=== PATIENT | male | born 1990 | race Caucasian/White ===

== ENCOUNTER 2020-06-28 15:20 | Emergency (ER) | payer MEDICAID ==
[~2020-06-28] VITALS: Ht 172.7 cm; Wt 77.0 kg
--- NOTE | 2020-06-28 15:38 | NUR ---
PT C/O SINUS CONGESTION WITH COUGH. PT DENIES FEVER, CHILLS, OR CHEST PAIN. PT STATES HE DOESN'T KNOW IF HE HAS HAD CONTACT WITH ANYONE WITH COVID.
[2020-06-28] MEDS ORDERED: ALBUTEROL/IPRATROPIUM 2.5MG/0.5MG, 3 ML ONE (15:48)
[2020-06-28] MEDS ORDERED: DEXAMETHASONE 4 MG TABLET ONE (15:49)
[2020-06-28] MEDS ORDERED: ALBUTEROL/IPRATROPIUM 2.5MG/0.5MG, 3 ML NPPB ONE (16:00)
[2020-06-28] MEDS ORDERED: DEXAMETHASONE 4 MG TABLET PO ONE (16:00)
--- NOTE | 2020-06-28 16:30 | NUR ---
PT STATES HE FELT MILD RELIEF AFTER THE NEBULIZED MEDICATION.
--- NOTE | 2020-06-28 16:43 | NUR ---
PA AT BEDSIDE. PT OXYGEN SATURATION 88 TO 91 PERCENT. PT AWARE HE HAS PNA BUT DOES NOT WANT TO BE ADMITTED. PA DISCUSSED THAT HE SHOULD GET A PULSE OX AND MONITOR IT AT HOME AND TO BE PRESCRIBED MEDS.
[2020-06-28 17:13] VITALS: BP 117/77
--- NOTE | 2020-06-28 17:25 | NUR ---
PT RECV'D DISCHARGE INSTRUCTIONS AND EDUCATION. PT HAD NO FURTER QUESTIONS. PT AMBULATED TO DISHARGE AREA, STEADY GAIT.
== END 2020-06-28 17:29 | disposition home or self-care (01) ==
LOC: ED 16:16
DX: J06.9 Acute upper respiratory infection, unspecified (principal); Z20.828 Contact with and (suspected) exposure to other viral communicable diseases; R06.02 Shortness of breath; H66.92 Otitis media, unspecified, left ear; R50.9 Fever, unspecified; R05 Cough; J45.909 Unspecified asthma, uncomplicated; F17.210 Nicotine dependence, cigarettes, uncomplicated
CPT/HCPCS: 36415; 71045; 87635; 93005; 94640; 99285

== ENCOUNTER 2021-05-11 18:17 | Emergency (ER) | payer MEDICAID ==
[~2021-05-11] VITALS: Ht 172.7 cm; Wt 77.0 kg
[2021-05-11 18:52] VITALS: BP 179/130
[2021-05-11] MEDS ORDERED: ALBUTEROL SULFATE 2.5 MG/3 ML NPPB ONE (19:00)
[2021-05-11 19:14] LABS: BASOPHILS % (AUTO) 1 % (0-1); EOSINOPHILS % (AUTO) 11 % (1-7); LYMPHOCYTES % (AUTO) 21 % (22-44); MEAN CORPUSCULAR HEMOGLOBIN 30.2 pg (27.5-34.5); MEAN CORPUSCULAR HGB CONC 35.6 g/dL (33.2-36.2); MEAN PLATELET VOLUME 10.1 fL (7.4-10.4); MONOCYTES % (AUTO) 9 % (2-9); NEUTROPHILS % (AUTO) 59 % (42-75); PLATELET COUNT 217 x10^3/uL (130-400); RED BLOOD COUNT 6.53 x10^6/uL (4.38-5.82); RED CELL DISTRIBUTION WIDTH 13.9 % (9.4-14.8)
[2021-05-11 19:25] LABS: ALBUMIN 4.2 g/dL (3.4-5.0); ANION GAP 5 mmol/L (5-15); CALCIUM 9.7 mg/dL (8.5-10.1); CHLORIDE 105 mmol/L (98-107)
[2021-05-11 19:26] LABS: CREATININE 0.96 mg/dL (0.7-1.3)
--- NOTE | 2021-05-12 01:25 | NUR ---
NIL X1 WHEN CALLED FOR PROVIDER RECHECK
--- NOTE | 2021-05-12 01:58 | NUR ---
NA X 2
--- NOTE | 2021-05-12 02:16 | NUR ---
NIL X3
== END 2021-05-12 02:17 | disposition left against medical advice (07) ==
LOC: ED 19:00
DX: J45.901 Unspecified asthma with (acute) exacerbation (principal); Z20.822 Contact with and (suspected) exposure to COVID-19
CPT/HCPCS: 36415; 71045; 80048; 82040; 85025; 93005; 99285; U0003; U0005